=== PATIENT | male | born 1945 | race Caucasian/White ===

== ENCOUNTER 2024-02-24 18:00 | Emergency (ER) | payer OTHER ==
[2024-02-24] MEDS: SODIUM CHLORIDE 0.9% 1000 ML INFUS.BAG IV ONE ×2 (18:10→18:45)
[2024-02-24 18:40] LABS: HEMATOCRIT 41.6 % (35.4-49); HEMOGLOBIN 14.1 G/dL (11.7-16.9); MCH 32.7 pg (25.7-33.7); MCHC 33.9 g/dl (32.0-35.9); MEAN CELL VOLUME 96.5 fl (80-96); MEAN PLT VOLUME 8.4 fl (7.5-11.1); PLATELET COUNT 180.6 10^3/uL (134-434); RBC 4.31 10^6/uL (4.00-5.60); RDW 13.2 % (11.9-15.9); WHITE BLOOD COUNT 9.2 10^3/uL (4.0-10.8)
[2024-02-24 18:43] VITALS: BP 149/64; PULSE 74; RESP 16; TEMP 97.9; BMI 24.8
[2024-02-24 18:58] LABS: ALBUMIN 4.4 g/dl (3.4-5.0); ALK PHOS 50 U/L (45-117); ANION GAP 8 mmol/L (4-13); BILIRUBIN,TOTAL 0.4 mg/dl (0.2-1); CALCIUM 9.1 mg/dl (8.5-10.1); CHLORIDE 95 mmol/L (98-107); CO2 25 mmol/L (21-32); CREATININE 0.9 mg/dl (0.6-1.3); GLUCOSE,RANDOM 121 mg/dl (74-106); MAGNESIUM 1.8 mg/dL (1.8-2.4); POTASSIUM 4.2 mmol/L (3.5-5.1); SGOT/AST 12 U/L (15-37); SGPT/ALT 14 U/L (7-52); SODIUM 128 mmol/L (136-145); TOT PROT 6.4 g/dl (6.4-8.2)
== END 2024-02-24 19:58 | disposition home or self-care (01) ==
LOC: FER 18:00
DX: T67.5XXA Heat exhaustion, unspecified, initial encounter (principal); E86.0 Dehydration; R19.7 Diarrhea, unspecified
CPT/HCPCS: 36415; 80053; 83690; 83735; 85027; 99283-25